=== PATIENT | male | born 1965 | race African-American/Black ===

== ENCOUNTER 2021-04-29 04:17 | Day surgery (SDC) | payer BC ==
[2021-04-23 11:04] VITALS: BMI 33.4
[2021-04-29 09:22] VITALS: TEMP 97.8
[2021-04-29] MEDS ORDERED: MIDAZOLAM HCL 2 MG/2 ML SINGLE DOSE VIAL ONE (10:19)
[2021-04-29] MEDS ORDERED: PROPOFOL 20 ML ONE ×2 (10:19→10:26)
[2021-04-29] MEDS ORDERED: DEXAMETHASONE SOD PHOSPHATE 4 MG/1 ML VIAL ONE (11:20)
[2021-04-29 12:41] VITALS: BP 130/80; PULSE 60
== END 2021-04-29 12:52 | disposition home or self-care (01) ==
LOC: JASU-SURG 04:17
PROVIDERS: ATTEND Urology
PROC: 0TF4XZZ Fragmentation in Left Kidney Pelvis, External Approach (ICD-10-PCS; principal; 2021-04-29 10:30)
DX: N20.0 Calculus of kidney (principal)